=== PATIENT | male | born 1980 | race Caucasian/White ===

== ENCOUNTER → 2021-07-13 08:01 | Outpatient (CLI) | payer OTHER, SELFPAY ==
--- NOTE | ~2021-07-13 | MR_ITS ---
EXAMINATION: MR shoulder LT wo con DATE: 07/13/2021 08:43 INDICATION: Impingement syndrome of the left shoulder presenting with left shoulder pain and limited range of motion. TECHNIQUE: Magnetic resonance imaging (MRI) of the left shoulder was performed without intravenous co ntrast. Sequences included axial PD-weighted FS FSE, coronal oblique PD-weighted FS FSE, coronal obli que T2-weighted FS FSE, sagittal PD-weighted FS FSE, and sagittal T1-weighted SE. COMPARISON: None. FINDINGS: Coracoacromial arch: The acromion undersurface is curved in morphology (type II). The coracoacromial ligament is normal. M ild acromioclavicular osteoarthritis. Rotator cuff: Mild supraspinatus and infraspinatus tendinopathy without discrete tear. The teres minor and subscapu renata tendons are normal. Normal rotator cuff muscle bulk and signal. Biceps tendon, glenoid labrum and glenohumeral cartilage: Long head of the biceps tendon is normal. Glenoid labrum appears normal. Mild partial-thickness carti jason loss with smooth chondral surface along the inferomedial aspect of the humeral head and along th e cephalad third of the glenoid. Fluid: Physiologic amount of fluid in the glenohumeral joint and biceps tendon sheath. No loose osteochondr al bodies. No abnormal increased fluid signal in the subacromial/subdeltoid bursa to suggest bursitis . Bones: Normal marrow signal with no edema, fracture or abnormal marrow replacing process. IMPRESSION: 1. Mild supraspinatus and infraspinatus tendinopathy without discrete tear. 2. 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 Reviewed, dictated and finalized at location B.
== END ==
PROVIDERS: PCP Chiropractor Rehabilitation; Visit Provider Chiropractor Rehabilitation
DX: M75.41 Impingement syndrome of right shoulder (principal); M75.82 Other shoulder lesions, left shoulder; M19.012 Primary osteoarthritis, left shoulder
CPT/HCPCS: 73221

== ENCOUNTER 2024-07-03 07:05 | Outpatient (CLI) | payer OTHER, SELFPAY ==
[2024-07-03 07:58] LABS: Hematocrit 46.6 % (42.0-52.0); Hemoglobin 15.9 g/dL (14.0-18.0); Mean Corpuscular HGB Conc 34.1 g/dl (32-36); Mean Corpuscular Hemoglobin 29.6 pg (26-34); Mean Corpuscular Volume 86.6 fl (80-100); Mean Platelet Volume 9.4 fl (7.4-10.4); Platelet Count Result 253 k/mm3 (150-375); Red Blood Count 5.38 M/mm3 (4.6-6.20); White Blood Count 7.2 K/mm3 (4.5-10.0)
[2024-07-03 08:12] LABS: Alanine Aminotransferase 35 U/L (6-50); Albumin Level 4.5 g/dL (3.5-5.1); Alkaline Phosphatase 45 U/L (38-126); Amylase 49 U/L (30-110); Anion Gap 7 mmol/L (4-12); Aspartate Amino Transferase 39 U/L (17-59); Bilirubin,Total 0.8 mg/dL (0.2-1.3); Blood Urea Nitrogen 23 mg/dL (9-20); Calcium 9.3 mg/dL (8.4-10.2); Carbon Dioxide 31 mmol/L (22-30); Chloride 101 mmol/L (98-107); Cholesterol 206 mg/dL (0-200); Estimated Glomerular Filt Rate > 60; Glucose 104 mg/dL (65-110); HDL Direct 51 mg/dL; Lipase 105 U/L (23-300); Potassium 4.1 mmol/L (3.4-5.0); Sodium 139 mmol/L (137-145); Triglycerides 109 mg/dL (<150); Uric Acid 5.9 mg/dL (3.5-8.5)
[2024-07-03 08:22] LABS: LDL Cholesterol Direct 114 mg/dL
[2024-07-03 11:30] LABS: Hemoglobin A1C 5.1 % (<5.7)
== END 2024-07-03 07:06 | disposition home or self-care (01) ==
LOC: ANHLAB 07:06
PROVIDERS: PCP Nurse Practitioner Family; Visit Provider Nurse Practitioner Family
DX: E66.3 Overweight (principal); Z00.00 Encounter for general adult medical examination without abnormal findings; Z76.89 Persons encountering health services in other specified circumstances; Z13.220 Encounter for screening for lipoid disorders; R19.7 Diarrhea, unspecified; Z13.0 Encounter for screening for diseases of the blood and blood-forming organs and certain disorders involving the immune mechanism; M79.674 Pain in right toe(s); M10.9 Gout, unspecified; Z13.228 Encounter for screening for other metabolic disorders; Z13.1 Encounter for screening for diabetes mellitus
CPT/HCPCS: 36415; 80053; 80061; 82150; 83036; 83690; 84550; 85027

== ENCOUNTER 2024-08-26 02:31 | Day surgery (SDC) | payer OTHER, SELFPAY ==
[2024-08-07 10:27] VITALS: BMI 27.0
--- OUTSIDE RECORDS SUMMARY | 2024-08-26 02:34 | XMS_ITS | Clinical Summary ---
Author Organization [facility] Address [address] [place] [id number] Care Team Providers Care Chemical Analyst Name Role Phone Obed Min MD Primary Care Provider Arie espinal Social History Tobacco Use Types Packs/Day Years Used Date Smoking Tobacco: Never Assessed Sex and Gender Information Value Date Recorded Sex Assigned at Not on file Legal Sex Male 6:27 PM CDT Gender Identity Not on file Sexual Orientation Not on file Last Filed Vital Signs Vital Sign Reading Time Taken Comments Blood Pressure 122/86 08/19/2014 2:17 PM CDT Pulse 62 04/20/2014 1:58 PM CDT Temperature - - Respiratory Rate - - Oxygen Saturation - - Inhaled Oxygen Concentration - - Weight 76.7 kg (169 lb) 08/19/2014 2:17 PM CDT Height 165.1 cm (5' 5) 08/19/2014 2:17 PM CDT Body Mass Index 28.12 08/19/2014 2:17 PM CDT Plan of Treatment Health Maintenance Due Date Last Done Comments Annual Physical 06/12/1983 Hepatitis C 1998 DTaP, Tdap and Td Vaccines ( 1 - Tdap) 06/12/1999 Hepatitis B Vaccines (1 of 3 - 19+ 3-dose series) 06/12/1999 COVID-19 Vaccine (2023-2 5 season) 2023 HPV Vaccines Aged Out No longer eligi ble based on patient's age to complete this topic Meningococcal B Vaccine Aged Out No l onger eligible based on patient's age to complete this topic Meningococcal Vaccine Aged Out No jolie den eligible based on patient's age to complete this topic Pneumococcal Vaccine: Pediat rics (0 to 5 Years) and At-Risk Patients (6 to 49 Years) Aged Out No longer eligible b ased on patient's age to complete this topic RSV Immunizations Under 20 Months Aged Out No longer eligible based on patient's age to complete this topic Care Teams Chemical Analyst Relationship Specialty Start Date End Date Obed Min MD PCP - General 08/11/14
[2024-08-26 11:32] VITALS: BP 136/84; PULSE 64; RESP 18; TEMP 36.6; O2SAT 99; BMI 27.1
--- NOTE | 2024-08-26 11:37 | P.PNAN_ITS ---
Anes - Initial Pre Proc Eval Procedure: Operation Date: 08/26/24 13:00 Proposed Procedures p Colonoscopy - Tom Schmitt MD Date/Time: 08/26/24 11:37 Surgeon: Tom Schmitt MD Pre Op Diagnosis: Other fecal abnormalities, Change in bowel habit Patient Data Age: 44 Gender: M Height: 1.68 m Weight: 76.3 kg Last Vital Signs Temp 97.9 F 08/26/24 11:32 Pulse 64 08/26/24 11:32 Resp 18 08/26/24 11:32 BP 136/84 08/26/24 11:32 Pulse Ox 99 08/26/24 11:32 O2 Del Method Room Air 08/26/24 11:32 Allergies Allergy/AdvReac Type Severity Reaction Status Date / Time No Known Allergies Allergy Verified 08/26/24 11:30 Home Medications ?Medication ?Instructions ?Recorded ?Confirmed ?Type No Home Medications 07/01/24 08/07/24 History Patient hx anesthesia problems: none Family hx anesthesia problems: none Results Review: All pre-operative results and documents have been reviewed as part of the pre-operative evaluation. [facility] Surgical History Surgical History History of appendectomy Family History Family History Mother Pancreatic cancer Father Cancer Pancreatic or skin Grandparent Pancreatic cancer Grandparent Pancreatic cancer Skin cancer Social History Social History Smoking status: Never smoker Alcohol intake: never Substance use: never Substance use type: does not use Living arrangements: with family Spiritual care concerns: No Anes - Eval Final PreProcedure Day of Procedure 08/26/24 11:37 Patient weight: normal Heart: regular rate and rhythm Lungs: clear to auscultation Airway: Mallampati scale class II Neurological: alert and oriented Last oral intake: >/= 8 hours ASA classification: I Emergent: no Anesthetic plan: proceed Anesthesia type and monitoring: general GIVS and standard monitoring Results Review: All pre-operative results and documents have been reviewed as part of the pre- operative evaluation. Informed Consent: The patient's anesthetic plan and its attendant risks and benefits were discussed with the patient/family/POA. Questions were solicited and answers provided to the satisfaction of the patient/family/POA.
[2024-08-26] MEDS: LACTATED RINGERS 1,000 ML 150 ML IV CONT (12:03)
--- NOTE | 2024-08-26 12:43 | PM.IMHP ---
H&P: HPI History of Present Illness Date/Time: 08/26/24 12:43 Chief Complaint: Change in bowel habits Narrative: the patient states that over the past year he has been experiencing fluctuation between solid stools and diarrhea, not associated with abdominal pain bleeding or weight loss. He is referred for colonoscopy. Review of Systems Review of Systems: All systems reviewed & are unremarkable except as noted in HPI and below PMFSH Surgical History Surgical History History of appendectomy Family History Family History Mother Pancreatic cancer Father Cancer Pancreatic or skin Grandparent Pancreatic cancer Grandparent Pancreatic cancer Skin cancer Social History Social History Smoking status: Never smoker Alcohol intake: never Substance use: never Substance use type: does not use Living arrangements: with family Spiritual care concerns: No Meds Home Medications and Allergies Home Medications ?Medication ?Instructions ?Recorded ?Confirmed ?Type No Home Medications 07/01/24 08/07/24 History Allergies Allergy/AdvReac Type Severity Reaction Status Date / Time No Known Allergies Allergy Verified 08/26/24 11:30 Vital Signs Vital Signs - 24 hr 08/26/24 11:32 Temperature 97.9 F Pulse Rate 64 Respiratory Rate 18 Blood Pressure 136/84 Pulse Oximetry 99 Oxygen Delivery Room Air Exam Const: General: cooperative and healthy appearing Resp: Effort & Inspection: normal respiratory effort and able to speak in complete sentences Auscultation: clear to auscultation bilaterally Cardio: Rate: regular rate Rhythm: regular rhythm GI: Inspection: normal to inspection GI Palp: No No hepatosplenomegaly present Auscultation: normal bowel sounds Rectal Exam: deferred Skin: General skin exam: normal color Psych: Appearance: grossly normal Mental Status: mental status grossly normal Assessment and Plan Assessment and plan (1) Change in consistency of stool: Code(s): R19.5 - Other fecal abnormalities Status: Acute Assessment and Plan: The patient is deemed a good candidate for the procedure. Consent signed. Will proceed.
--- NOTE | 2024-08-26 12:55 | S_PTH ---
PATIENT: Roberto Pacheco LOC: [facility] U#:[id number] AGE/SX: 44/M ROOM: RE08/26/[address]: Tom Schmitt MD : 1980 BED: DIS: 08/26/2024 SPEC #: [id number] RECD: 08/26/24 13:38 STATUS: SERG REShraddha #: [id number] MADDIE: 08/26/24 12:[address]: Tom Schmitt DEPT: [facility] Surgical RECD BY: Cristy Craft ENTERED: 08/26/24 13:42 SP TYPE: Surgical OTHR DR: Jennifer Guzmán APRN Tissues: A - Colon Biopsy B - Colon Biopsy Procedures: Hematoxylin and Eosin Stain Gross and Microscopic Level 4
[2024-08-26 13:00] VITALS: BP 100/63; PULSE 69; RESP 21; O2SAT 100
[2024-08-26 13:10] VITALS: BP 110/70; PULSE 70; RESP 20; O2SAT 98
[2024-08-26 13:20] VITALS: BP 114/80; PULSE 60; RESP 17; O2SAT 99
== END 2024-08-26 13:27 | disposition home or self-care (01) ==
PROVIDERS: PCP Nurse Practitioner Family; Referring Provider Nurse Practitioner Family; Visit Provider Internal Medicine Gastroenterology
PROC: 0DJD8ZZ Inspection of Lower Intestinal Tract, Via Natural or Artificial Opening Endoscopic (ICD-10-PCS; CPT 45378; principal; 2024-08-26 13:00)
DX: R19.7 Diarrhea, unspecified (principal)
CPT/HCPCS: 45380; 88305; J2704; J7120